=== PATIENT | male | born 1925 | race Caucasian/White ===

== ENCOUNTER 2016-07-22 09:19 | Emergency (ER) | payer MEDICARE ==
[~2016-07-22] VITALS: Ht 172.7 cm; Wt 70.8 kg
[~2016-07-22 09:19] MED LIST: AMLO2.5T; ANTA; ANTARA; ASP325TEC PO; ASP81TEC PO; ASPI-84; ATOR20TA49 PO; ATOR20TA66 PO; ATR20T; AZIT-21 PO; CALC-656 PO; CEFU500T5 PO; ENAL10TA PO; ENAL5TAB PO; FERR-57; FERR-74 PO; FRSM40T PO; GLIM4TAB PO; GLUC-144 PO; HUM100VI15 SQ; HYDR-757 PO; INSA70301U SQ; INSU100C7 SQ; INSU100V3 SC; LEVO25TA5 PO; LOSA50TA36 PO; LOSA50TA6 PO; METO-272 PO; METO50TA7 PO; POTA10CA43 PO; ROSI1TAB24; SITA100T PO; TERA2CAP4 PO
--- OUTSIDE RECORDS SUMMARY | 2016-07-22 09:25 | XMS REPORT | Continuity of Care Document ---
Author Author [facility] Organization [facility] Address Unknown Phone Unavailable Care Team Providers Care Manager Strategy & Account Name Role Phone BONIFACIO NGO MD PCP Insurance Providers Payer Name Policy Number Subscriber Name Relationship [employer] Gold Choice [id number] Jessica Sevilla 20 Self / Same As Patient Advance Directives Directive Response Recorded Date/Time Advance Directives Yes 05/23/14 6:05am Health Care Power of Capacity Manager Y SON 05/23/14 6:05am Organ Donor Yes 05/23/14 6:05am Problems No known problems or medical conditions. Medications Medication Dose Route Sig Days/Qty Instructions Order Date Discontinued Date Status [Anta] 04/21/09 04/21/09 Discontinued Atorvastatin Calcium 04/21/09 04/21/09 Discontinued Rosiglitazone/Metformin Hcl 04/21/09 12/23/10 Discontinued Amlodipine Besylate (Norvasc 2.5 Mg) 04/21/09 12/23/10 Discontinued [Antara] 04/21/09 12/23/10 Discontinued Aspirin 04/21/09 12/23/10 Discontinued Atorvastatin Calcium 04/21/09 12/23/10 Discontinued Ferrous Sulfate 04/21/09 12/23/10 Discontinued Rosiglitazone/Metformin Hcl 04/21/09 04/21/09 Discontinued Amlodipine Besylate (Norvasc 2.5 Mg) 04/21/09 04/21/09 Discontinued Insulin Regular Human Rec 30 Units SC AM 12/23/10 Active Glimepiride 4 Mg PO DAILY 12/23/10 Active Enalapril Maleate 5 Mg PO DAILY 12/23/10 10/01/13 Discontinued Sitagliptin Phosphate 100 Mg PO DAILY 12/23/10 Active Insulin Glargine,Hum.rec.anlog 40 Unit SQ BEDTIME 09/27/13 Active Calcium Carbonate/Vitamin D3 1,000 Each PO DAILY 09/28/13 10/01/13 Discontinued Metoprolol Succinate 50 Mg PO DAILY 60 Qty 10/01/13 Active Azithromycin (Zpak) 250 Mg PO DAILY 2 Qty take for 2 days 10/01/1305/19 Discontinued Atorvastatin 20 Mg PO DAILY 05/19/14 05/23/14 Discontinued Losartan Potassium 50 Mg PO DAILY 05/19/14 Active Aspirin 325 Mg PO DAILY 05/19/14 Active Social History Social History Problem Response Recorded Date/Time Alcohol Use Occasionally Uses 05/23/2014 6:05am Recreational Drug Use No 05/23/2014 6:05am Recent Foreign Travel No 09/28/2013 1:47am Recent Infectious Disease Exposure No 09/28/2013 1:47am Hospitalization with Isolation Denies 10/01/2013 12:54pm Sexually Transmitted Disease No 05/23/2014 6:05am HIV/AIDS No 05/23/2014 6:05am Hospital Discharge Instructions No hospital discharge instructions. Plan of Care No plan of care. Functional Status No functional status results. Allergies, Adverse Reactions, Alerts Allergen Type Severity Reaction Status Last Updated quinine Allergy Mild HIVES Active 05/23/14 Immunizations Name Given Type Date of Pneumonia Vaccine 10/01/13 Historical Date of Influenza Vaccine 03/29/14 Historical Hepatitis A No Historical Hepatitis B No Historical Tetanus Booster (TDap) More than 5yrs Historical Vital Signs No known vital signs results. Results No known relevant diagnostic tests, laboratory data and/or discharge summary. Procedures No known history of procedures. Encounters Encounter Location Date/Time Discharged Recurring Via [facility] 07/28/14 12:52pm
[2016-07-22] MEDS ORDERED: GABAPENTIN 300 MG (NEURONTIN) CAP PO ONE (09:45)
[2016-07-22] MEDS ORDERED: KETOROLAC 60 MG/2 ML VIAL IM ONE (09:45)
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
[2016-07-22] MEDS ORDERED: GABA300C PO (10:45)
[2016-07-22] MEDS ORDERED: oxyCODONE/APAP 5/325MG (PERCOCET 5) TABLET PO ONE (10:45)
[2016-07-22] MEDS ORDERED: OXYC-197 PO (10:45)
[2016-07-22 10:56] VITALS: BP 178/80
== END 2016-07-22 10:55 | disposition home or self-care (01) ==
LOC: EDUNIT# 09:19 → ER 09:20
DX: M54.41 Lumbago with sciatica, right side (principal); E11.9 Type 2 diabetes mellitus without complications; I10 Essential (primary) hypertension; Z79.84 Long term (current) use of oral hypoglycemic drugs; Z79.4 Long term (current) use of insulin; Z79.82 Long term (current) use of aspirin; Z79.899 Other long term (current) drug therapy; Z95.0 Presence of cardiac pacemaker
CPT/HCPCS: 82962; 96372; 99283

== ENCOUNTER → 2016-08-25 | Outpatient (CLI) | payer MEDICARE ==
[~2016-08-25] MED LIST changes: +GABA300C PO; +OXYC-197 PO
--- OUTSIDE RECORDS SUMMARY | 2016-08-25 14:02 | XMS REPORT | Continuity of Care Document ---
Author Author [facility] Organization [facility] Address Unknown Phone Unavailable Care Team Providers Care Vp & General Counsel Name Role Phone BONIFACIO NGO MD PCP Insurance Providers Payer Name Policy Number Subscriber Name Relationship [employer] Gold Choice [id number] Jessica Sevilla 20 Self / Same As Patient Advance Directives Directive Response Recorded Date/Time Advance Directives Yes 05/23/14 6:05am Health Care Power of Certified Physical Therapist Assistant Y SON 05/23/14 6:05am Organ Donor Yes [...] Encounters Encounter Location Date/Time Discharged Recurring Via [facility] 07/28/14 12:52pm
--- NOTE | 2016-08-25 17:06 | Diagnostic Imaging Report ---
Three views of the lumbar spine. INDICATION: Low back pain. FINDINGS: Fiducial markers in the prostate are seen. There are sclerotic lesions noted in the left iliac bone and the left sacrum ala up to 2 cm in size. These are new from pelvic x-ray of 07/24/2015. 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 There is straightening of the lumbar spine curvature. The alignment at the posterior spinal line is satisfactory. There is significant disc height loss at L4-L5 and L5-S1 with posterior osteophytes seen. There is also disc height loss and anterior and posterior osteophytes at the L1-L2 level. No compression fracture. IMPRESSION: 1. 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 2. Prominent degenerative disc changes in the upper and lower lumbar spine levels. Dictated by: Dictated on workstation # [id number]
--- NOTE | 2016-08-25 18:30 | Diagnostic Imaging Report ---
Three views of the SI joints. INDICATION: Low back pain. FINDINGS: There are fiducial radiation markers in the prostate gland. This is suggestive of history of prostate cancer. There are multiple sclerotic lesions seen in the sacral ala and left iliac bone up to 2 cm in size, new when compared to 07/24/2015 pelvic radiograph suggestive of osseous metastasis. The SI joints have normal alignment. No acute fracture identified. 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 Dictated by: Dictated on workstation # [id number]
== END ==
LOC: RAD 13:56
PROVIDERS: ATTEND Nurse Practitioner Family
DX: M54.5 Low back pain (principal); M89.9 Disorder of bone, unspecified
CPT/HCPCS: 72100; 72202

== ENCOUNTER → 2016-09-04 | Outpatient (CLI) | payer MEDICARE ==
[~2016-09-04] MED LIST changes: +BARIUM SUSPENSION 2.1% (VANILLA SILQ) 450 ML PO ONE; +CATHETER FLUSH 10 ML SYR IV PRN; +IOHEXOL 350 MG/ML 100 ML (OMNIPAQUE 350) VIAL IV ONE; +NS 100 ML (IVPB) BAG IV ONE
--- OUTSIDE RECORDS SUMMARY | 2016-09-04 08:57 | XMS REPORT | Continuity of Care Document ---
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
--- NOTE | 2016-09-04 15:44 | Diagnostic Imaging Report ---
PA and lateral chest at 9:30 a.m. INDICATION: Prostate cancer. FINDINGS: The heart size is within normal limits and stable when compared to 04/24/2016. The left-sided pacemaker seen previously is again visualized and no different. The lungs are clear. There is no sign of failure, pneumonia or pleural effusion to suggest an acute abnormality. On the lateral view, there is a suggestion of a small 6 mm rounded density overlying the mid thoracic vertebra. In reviewing the CTA chest exam performed on 04/24/2016, there was a smaller calcific density within one of the mid thoracic vertebra, probably T7. As this density has increased in size since the prior study it may be secondary to metastatic disease. If further study is desired, then CT of the chest would recommended. The previous CT chest exam also showed a calcified nodule in the spleen. That finding is also again visualized on this study. The mediastinum is not widened. The osseous structures are intact. IMPRESSION: 1. There is no evidence for an acute cardiopulmonary abnormality. 2. The calcific density overlying one of the midthoracic vertebra does seem to have increased in size since the prior study. Consequently, this could be secondary to metastatic disease. If further evaluation is desired, then CT the chest would be recommended. Dictated by: Dictated on workstation # [id number]
--- NOTE | 2016-09-04 18:12 | Diagnostic Imaging Report ---
INDICATION: Prostate cancer. TECHNIQUE: The patient was administered 24.90 mCi technetium 99m MDP. Anterior and posterior whole-body planar images are obtained. CORRELATION STUDY: None. FINDINGS: There are multifocal areas of abnormal radiotracer accumulation now, concerning for osseous metastatic disease. Focal uptake over the left costovertebral margins at T3 level and likely over the left aspect of the T7 vertebral body. Uptake over the inferior T12 vertebral body. Uptake over the right aspect of L1 and likely L2. Uptake over the likely left aspect of the S1 vertebral body as well as two areas of uptake of both of the iliac bones just lateral to the sacroiliac margins. Uptake over the inferior tip of the scapula on the right versus less likely rib uptake. There is uptake about the left posterolateral left seventh rib. Uptake about the lateral right third rib. There is rather prominent linearly oriented uptake near the tips of the right fourth, fifth, sixth, seventh, and eighth ribs. Given the overall appearance and distribution, may be posttraumatic. Faint indeterminate uptake over the right greater trochanter and intertrochanteric region. Uptake about the medial right knee, likely degenerative. Findings are compatible with likely Bcevtj-O-Bcva catheter over the left chest. Physiologic uptake about the kidneys with excretion into the urinary bladder. IMPRESSION: 1. Multifocal areas of uptake as detailed above, most concerning for osseous metastatic disease. 2. Linearly oriented uptake about the anterior right ribs near the costochondral margins favors likely posttraumatic. Dictated by: Dictated on workstation # [id number]
--- NOTE | 2016-09-04 18:19 | Diagnostic Imaging Report ---
PROCEDURE: CT chest, abdomen, and pelvis with contrast. TECHNIQUE: Multiple contiguous axial images were obtained through the chest, abdomen, and pelvis after the administration of intravenous contrast. INDICATION: Prostate carcinoma, right buttock pain. FINDINGS: The previous CTA chest exam performed on 04/24/2016 failed to show any sign of an acute abnormality. On this exam, there is still no evidence for aneurysmal dilatation of the aorta or for a dissection. There is no defect within the pulmonary arteries to indicate a pulmonary embolus either. The heart size is within normal limits. The left-sided pacemaker seen previously is again evident and unchanged. The chronic pulmonary changes involving the lung bases seen previously are again visualized and no different. The 7 mm noncalcified nodular density noted on the previous study is also again visualized and stable. This density was not present on the prior exam of 04/22/2009. The possibility of this related to metastatic disease should be considered. I would recommend that a six-month follow-up CT chest exam be performed for further study. The lungs are otherwise clear. There is no mediastinal or hilar adenopathy noted. The thyroid gland is partially obscured by streak artifact related to the left-sided pacemaker battery pack. The liver is homogeneous and not enlarged. The calcification within the spleen seen on the previous CT abdomen and pelvis exam of 04/21/2009 is again visualized and no different. The spleen itself is also stable. The pancreas is atrophic. There are number of calcifications within the head of the pancreas. These may be a sequela of prior episodes of pancreatitis. The adrenals, the kidneys, and the inferior vena cava are unremarkable for an acute abnormality. The stomach is filled with particulate matter and fluid and consequently difficult to assess. 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 The aorta measures 3.0 x 3.3 cm in maximum transverse and AP diameters. No pelvic mass or free fluid collection noted. There are numerous radiopaque metallic seed implants within the enlarged prostate gland. This appearance is also similar to the prior study. The urinary bladder is grossly unremarkable. There may be a few diverticula in the sigmoid colon, but there is no evidence for acute diverticulitis. The appendix is not well visualized, but there are no indirect signs of acute appendicitis. The bone windows show that in the interval since the 2008 exam several blastic lesions have developed in the pelvis. There also appear to be small blastic lesions now present within T12, L1, and L2. Furthermore, there is a 10 mm blastic lesion in T7 on the left. This has more than doubled in size since the previous CTA chest exam of 04/24/2016. All of these blastic lesions should be considered secondary to metastatic disease until proven otherwise. IMPRESSION: 1. There is no evidence for an acute abnormality of the chest, abdomen, or pelvis. 2. There are numerous blastic lesions involving the pelvis and the spine and the lesion in the T7 vertebral body has more than doubled in size since the prior exam. These findings should be considered secondary to metastatic disease related to patient's diagnosis of prostate carcinoma. 3. The small pulmonary nodule in the left lung base does not appear to have changed significantly since the prior exam, but this could also be related to metastatic disease. Recommendations as above. Dictated by: Dictated on workstation # [id number]
== END ==
LOC: CARD 08:52
PROVIDERS: ATTEND Internal Medicine Hematology & Oncology
DX: C61 Malignant neoplasm of prostate (principal)
CPT/HCPCS: 71020; 71260; 74177; 78306

== ENCOUNTER 2016-11-27 11:04 | Outpatient (RCR) | payer MEDICARE ==
--- OUTSIDE RECORDS SUMMARY | 2016-09-03 13:41 | XMS REPORT | Continuity of Care Document ---
Author Author [facility] Organization [facility] Address Unknown Phone Unavailable Care Team Providers Care Box Nailer Name Role Phone BONIFACIO NGO MD PCP Insurance Providers Payer Name Policy Number Subscriber Name Relationship [employer] Choice [id number] Jessica Sevilla 20 Self / Same As Patient Advance Directives Directive Response Recorded Date/Time Advance Directives Yes 05/23/14 6:05am Health Care Power of Microphone Boom Operator Y SON 05/23/14 6:05am Organ Donor Yes [...] Encounters Encounter Location Date/Time Discharged Recurring Via [facility] 07/28/14 12:52pm
[2016-10-02 15:38] LABS: BASOPHILS % (AUTO) 0 % (0-10); EOSINOPHILS # (AUTO) 0.3 10^3/uL (0.0-0.3); EOSINOPHILS % (AUTO) 3 % (0-10); LYMPHOCYTES # (AUTO) 1.3 X 10^3 (1.0-4.0); LYMPHOCYTES % (AUTO) 17 % (12-44); MEAN CORPUSCULAR HEMOGLOBIN 28 PG (25-34); MEAN CORPUSCULAR HGB CONC 32 G/DL (32-36); MEAN CORPUSCULAR VOLUME 86 FL (80-99); MONOCYTES # (AUTO) 0.9 X 10^3 (0.0-1.0); MONOCYTES % (AUTO) 12 % (0-12); NEUTROPHILS # (AUTO) 5.1 X 10^3 (1.8-7.8); NEUTROPHILS % (AUTO) 68 % (42-75); PLATELET COUNT 182 10^3/uL (130-400); RED BLOOD COUNT 4.66 10^6/uL (4.35-5.85); RED CELL DISTRIBUTION WIDTH 14.9 % (10.0-14.5); WHITE BLOOD COUNT 7.5 10^3/uL (4.3-11.0)
[2016-10-02 16:07] LABS: ALANINE AMINOTRANSFERASE 39 U/L (0-55); ALBUMIN 3.6 G/DL (3.2-4.5); ANION GAP 8 MMOL/L (5-14); ASPARTATE AMINO TRANSFERASE 26 U/L (5-34); BILIRUBIN,TOTAL 0.4 MG/DL (0.1-1.0); BLOOD UREA NITROGEN 17 MG/DL (7-18); BUN/CREATININE RATIO 17; CARBON DIOXIDE 25 MMOL/L (21-32); CHLORIDE 109 MMOL/L (98-107); CREATININE SERUM 1.03 MG/DL (0.60-1.30); GFR ESTIMATED > 60; GLUCOSE 94 MG/DL (70-105); POTASSIUM 4.1 MMOL/L (3.6-5.0); SODIUM 142 MMOL/L (135-145); TOTAL PROTEIN 5.9 G/DL (6.4-8.2)
[2016-10-30 10:07] LABS: BASOPHILS % (AUTO) 1 % (0-10); EOSINOPHILS # (AUTO) 0.4 10^3/uL (0.0-0.3); EOSINOPHILS % (AUTO) 6 % (0-10); LYMPHOCYTES # (AUTO) 1.2 X 10^3 (1.0-4.0); LYMPHOCYTES % (AUTO) 19 % (12-44); MEAN CORPUSCULAR HEMOGLOBIN 28 PG (25-34); MEAN CORPUSCULAR HGB CONC 32 G/DL (32-36); MEAN CORPUSCULAR VOLUME 88 FL (80-99); MEAN PLATELET VOLUME 11.3 FL (7.4-10.4); MONOCYTES # (AUTO) 0.6 X 10^3 (0.0-1.0); MONOCYTES % (AUTO) 9 % (0-12); NEUTROPHILS # (AUTO) 4.3 X 10^3 (1.8-7.8); NEUTROPHILS % (AUTO) 66 % (42-75); PLATELET COUNT 182 10^3/uL (130-400); RED BLOOD COUNT 4.27 10^6/uL (4.35-5.85); RED CELL DISTRIBUTION WIDTH 15.1 % (10.0-14.5); WHITE BLOOD COUNT 6.6 10^3/uL (4.3-11.0)
[2016-10-30 10:36] LABS: ALANINE AMINOTRANSFERASE 35 U/L (0-55); ALBUMIN 3.6 G/DL (3.2-4.5); ANION GAP 4 MMOL/L (5-14); ASPARTATE AMINO TRANSFERASE 25 U/L (5-34); BILIRUBIN,TOTAL 0.4 MG/DL (0.1-1.0); BLOOD UREA NITROGEN 13 MG/DL (7-18); BUN/CREATININE RATIO 12; CALCIUM 9.2 MG/DL (8.5-10.1); CARBON DIOXIDE 27 MMOL/L (21-32); CHLORIDE 111 MMOL/L (98-107); CREATININE SERUM 1.06 MG/DL (0.60-1.30); GFR ESTIMATED > 60; GLUCOSE 234 MG/DL (70-105); POTASSIUM 4.7 MMOL/L (3.6-5.0); SODIUM 142 MMOL/L (135-145); TOTAL PROTEIN 6.1 G/DL (6.4-8.2)
[~2016-11-27 11:04] MED LIST changes: -BARIUM SUSPENSION 2.1% (VANILLA SILQ) 450 ML PO ONE; -CATHETER FLUSH 10 ML SYR IV PRN; +DENOSUMAB 120 MG/1.7 ML (XGEVA) SQ SCH; +DEXAMETHASONE IV NR; -IOHEXOL 350 MG/ML 100 ML (OMNIPAQUE 350) VIAL IV ONE; +LEUPROLIDE 22.5 MG SYRIN(ELIGARD) SQ SCH; +LEUPROLIDE ACETATE 7.5 MG ELIGARD SQ SCH; -NS 100 ML (IVPB) BAG IV ONE; +NS IV NR
== END 2016-12-02 | disposition home or self-care (01) ==
LOC: ONC 11:04
PROVIDERS: ATTEND Internal Medicine Hematology & Oncology
DX: C61 Malignant neoplasm of prostate (principal); C79.51 Secondary malignant neoplasm of bone; Z87.891 Personal history of nicotine dependence; I10 Essential (primary) hypertension; E11.9 Type 2 diabetes mellitus without complications; Z79.4 Long term (current) use of insulin; E78.00 Pure hypercholesterolemia, unspecified; Z95.0 Presence of cardiac pacemaker
CPT/HCPCS: 36415; 80053; 84153; 85025; 96372; 96374; 96402; 99213; 99214

== ENCOUNTER → 2016-12-09 | Outpatient (CLI) | payer MEDICARE ==
[~2016-12-09] VITALS: Ht 170.2 cm; Wt 75.3 kg
[~2016-12-09] MED LIST changes: +CATHETER FLUSH 10 ML SYR IV PRN; -DENOSUMAB 120 MG/1.7 ML (XGEVA) SQ SCH; -DEXAMETHASONE IV NR; -LEUPROLIDE 22.5 MG SYRIN(ELIGARD) SQ SCH; -LEUPROLIDE ACETATE 7.5 MG ELIGARD SQ SCH; -NS IV NR; +REGADENOSON 0.4 MG/5 ML SYR (LEXISCAN) IV ONE
[2016-12-09 13:25] VITALS: BP 156/80
[2016-12-09 13:30] VITALS: BP 144/63
[2016-12-09 13:32] VITALS: BP 147/68
[2016-12-09 13:33] VITALS: BP 158/68
--- NOTE | 2016-12-10 14:44 | STRESS TEST ---
DATE OF SERVICE: 12/09/2016 RESTING AND POST REGADENOSON TECHNETIUM-99M TETROFOSMIN SPECT CT IMAGING ORDERING PHYSICIAN: Lacey Phillips APRN PRIMARY PHYSICIAN: Dr. Moses. CLINICAL DIAGNOSES: Hypertension, hyperlipidemia, carotid arterial disease, sinus node dysfunction. Baseline images were carried out after injection of 9.98 mCi of technetium-99m tetrofosmin. This was followed by 0.4 mg regadenoson and 29.3 mCi of technetium-99m tetrofosmin for stress imaging. The electrocardiogram showed sinus rhythm with nonspecific ST and T-wave abnormality, which persisted throughout the study. There was incomplete right bundle branch block throughout the study. Following regadenoson infusion, the patient noted a headache and some stomach discomfort, which resolved in a few minutes. The electrocardiogram did not change significantly. Review of images at rest and following stress does not indicate any significant perfusion defects consistent with any significant myocardial ischemia or infarction. Gated images show normal global left ventricular systolic function with normal regional wall motion. Left ventricular ejection fraction is calculated to be 58%. Left ventricular end-diastolic volume is 49 mL. TID is absent (1.15). CONCLUSIONS: 1. No evidence of any significant myocardial ischemia or infarction on this study. 2. Normal regional wall motion. 3. Normal global left ventricular systolic function with a calculated ejection fraction of 58%. Job ID: [id number] DocumentID: [id number] Dictated Date: 12/10/2016 12:51:10 Reservations Clerk Date: 12/10/2016 14:00:28 Dictated By: MISSY GARCIA MD, MA, FACP, FACC,
== END ==
LOC: CARD 11:30
PROVIDERS: ATTEND Nurse Practitioner Family
DX: I65.23 Occlusion and stenosis of bilateral carotid arteries (principal); M25.473 Effusion, unspecified ankle; E78.00 Pure hypercholesterolemia, unspecified; I10 Essential (primary) hypertension; Z95.0 Presence of cardiac pacemaker
CPT/HCPCS: 78452; 93017

== ENCOUNTER → 2016-12-10 | Outpatient (CLI) | payer MEDICARE ==
[~2016-12-10] MED LIST changes: -CATHETER FLUSH 10 ML SYR IV PRN; -REGADENOSON 0.4 MG/5 ML SYR (LEXISCAN) IV ONE
== END ==
LOC: CARD 13:53
PROVIDERS: ATTEND Nurse Practitioner Family
DX: I65.23 Occlusion and stenosis of bilateral carotid arteries (principal); E78.00 Pure hypercholesterolemia, unspecified; I10 Essential (primary) hypertension; M25.473 Effusion, unspecified ankle; Z95.0 Presence of cardiac pacemaker

== ENCOUNTER → 2017-02-05 | Outpatient (CLI) | payer MEDICARE ==
[~2017-02-05] MED LIST changes: -METO-272 PO; +METO-370 PO
--- NOTE | 2017-02-05 19:01 | Diagnostic Imaging Report ---
PROCEDURE: US Thyroid. TECHNIQUE: Multiple real-time grayscale images were obtained of the thyroid in various projections. INDICATION: Follow-up nodule. FINDINGS: The right thyroid lobe is 3.4 x 2 x 1.9 cm. The left lobe is 2.9 x 1.7 x 1.3 cm. There is a nodule in the upper aspect of the right lobe measuring 1.9 x 1.2 x 1.3 cm with solid appearance and without change from the previous exam of 01/03/2016. Other smaller nodules and colloid cysts are seen in the left lobe up to 5 mm in size of questionable clinical significance. IMPRESSION: Dominant solid nodule in the upper aspect of the right thyroid lobe measuring 1.9 cm in size with no change from 01/03/2016 in favor of benign etiology. Dictated by: Dictated on workstation # [id number]
== END ==
LOC: RAD 11:20
PROVIDERS: ATTEND Nurse Practitioner Family
DX: E04.1 Nontoxic single thyroid nodule (principal)
CPT/HCPCS: 76536